=== PATIENT | male | born 1955 | race African-American/Black ===

== ENCOUNTER 2016-10-20 19:27 | Emergency (ER) | payer BC ==
[~2016-10-20] VITALS: Ht 180.3 cm; Wt 105.0 kg
[2016-10-20] MEDS ORDERED: ONDANSETRON HCL 4MG/2ML VIAL IM ONE (23:45)
[2016-10-20] MEDS ORDERED: ALISKIREN HEMIFUMARATE 150 MG TABLET PO ONE (23:45)
[2016-10-20] MEDS ORDERED: SODIUM CHLORIDE 0.9% 250 ML IV ONE (23:45)
[2016-10-20] MEDS ORDERED: BACITRACIN ZINC OINT UDPKT TOP ONE (23:45)
[2016-10-20] MEDS ORDERED: LIDOCAINE HCL 1%/EPI 1:200,000 30 ML VIAL MC ONE (23:45)
[2016-10-20] MEDS ORDERED: MORPHINE SULFATE 4 MG/ML CPJ (NOT FOR IM USE) IV ONE (23:45)
[2016-10-21] MEDS ORDERED: LIDOCAINE HCL 2% JELLY 5ML TOP ONE (01:15)
[2016-10-21] MEDS ORDERED: AMOXICILLIN/POTASSIUM CLAVULANATE 875/125MG TAB PO ONE (01:15)
[2016-10-21 03:54] VITALS: BP 204/109
[2016-10-21] MEDS ORDERED: HYDRALAZINE HCL 50MG TABLET PO SCH (09:00)
== END 2016-10-21 04:00 | disposition home or self-care (01) ==
LOC: ER 10-21 00:23
DX: K61.0 Anal abscess (principal); I10 Essential (primary) hypertension; F12.10 Cannabis abuse, uncomplicated
CPT/HCPCS: 96361; 96372; 96374; 99285; J2270; J2405; J7030; X7700; Z7610; J7050

== ENCOUNTER 2017-07-14 10:54 | Emergency (ER) | payer SELFPAY ==
[~2017-07-14] VITALS: Ht 182.9 cm; Wt 109.0 kg
[2017-07-14] MEDS ORDERED: FLUORESCEIN SODIUM 1MG/STRIP BOTHEYE ONE (12:30)
[2017-07-14] MEDS ORDERED: TETRACAINE 0.5% OPHTH DROPS 4ML BOTHEYE ONE (12:30)
[2017-07-14] MEDS ORDERED: CLONIDINE 0.2MG TABLET PO ONE (12:45)
[2017-07-14 13:15] LABS: BASOPHILS % 0.5 % (0.0-2.0); EOSINOPHILS % 1.4 % (0.0-5.0); HEMATOCRIT. 43.7 % (42.0-52.0); HEMOGLOBIN. 14.6 g/dL (14.0-18.0); LYMPHOCYTES % 47.1 % (20.0-50.0); MEAN CORPUSCULAR HEMOGLOBIN 29.7 pg (28.0-32.0); MEAN CORPUSCULAR VOLUME 89.2 fL (80.0-94.0); MONOCYTES % 7.9 % (2.0-8.0); NEUTROPHILS % 43.1 % (40.0-76.0); PLATELET 220 x1000/uL (130-400); RED CELL DISTRIBUTION WIDTH 14.1 % (11.6-14.6)
[2017-07-14 13:23] LABS: CHLORIDE 103 mEq/L (98-107)
[2017-07-14 13:29] LABS: TROPONIN I < 0.02 ng/mL (0.00-0.04)
[2017-07-14 13:30] LABS: CREATINE KINASE MB FRACTION 2.1 ng/mL (0.5-3.6); PARTIAL THROMBOPLASTIN TIME 27.2 sec (23.4-31.0)
[2017-07-14] MEDS ORDERED: ASPIRIN 325MG EC TABLET PO ONE (14:15)
[2017-07-14 15:02] VITALS: BP 212/105
== END 2017-07-14 16:39 | disposition left against medical advice (07) ==
LOC: ER 12:00 → EDBEDREQ 14:30 → EDBEDREQSVC 14:30 → ER 16:39 → CANRESERV 18:34 → ENRESERV 18:34 → CANBEDREQ 21:17
DX: I63.9 Cerebral infarction, unspecified (principal); H49.02 Third [oculomotor] nerve palsy, left eye; I10 Essential (primary) hypertension; Z98.890 Other specified postprocedural states
CPT/HCPCS: 36415; 70450; 71045; 80053; 82553; 82962; 84484; 85025; 85610; 85730; 93005; 99285; Z7610

== ENCOUNTER 2018-06-19 14:44 | Emergency (ER) | payer MEDICAID ==
[~2018-06-19] VITALS: Ht 182.9 cm; Wt 104.0 kg
[2018-06-19 20:25] VITALS: BP 168/97
== END 2018-06-19 20:48 | disposition home or self-care (01) ==
LOC: ER 14:44
DX: M25.572 Pain in left ankle and joints of left foot (principal); I10 Essential (primary) hypertension; E78.00 Pure hypercholesterolemia, unspecified
CPT/HCPCS: 73610; 99283